=== PATIENT | male | born 1985 | race Caucasian/White ===

== ENCOUNTER 2017-01-29 18:53 | Emergency (ER) | payer SELFPAY ==
[~2017-01-29] VITALS: Ht 175.3 cm; Wt 88.6 kg
[2017-01-29] MEDS ORDERED: CEPHALEXIN500 M1 PO (20:15)
[2017-01-29 20:32] VITALS: BP 134/86
== END 2017-01-29 20:32 | disposition home or self-care (01) ==
LOC: ED 18:53
DX: S61.211A Laceration without foreign body of left index finger without damage to nail, initial encounter (principal); S60.022A Contusion of left index finger without damage to nail, initial encounter; W22.8XXA Striking against or struck by other objects, initial encounter; Y92.000 Kitchen of unspecified non-institutional (private) residence as the place of occurrence of the external cause; Z23 Encounter for immunization
CPT/HCPCS: 90715

== ENCOUNTER 2017-08-28 03:12 | Emergency (ER) | payer SELFPAY ==
[~2017-08-28] VITALS: Ht 177.8 cm; Wt 90.9 kg
[~2017-08-28 03:12] MED LIST changes: -NORCO 325 MG-51 TA1 PO
[2017-08-28 03:44] LABS: BASO # 0.1 (0.02-0.10); EOS # 0.4 (0.04-0.40); EOS % 3.2 % (0.0-4.0); HEMATOCRIT 43.9 % (42.0-52.0); HEMOGLOBIN 15.4 g/dL (13.5-18.0); LYMPH# 4.3 (1.50-4.00); MEAN CELL VOLUME 89 fl (78-100); MEAN CORPUSCULAR HEMOGLOBIN 31 pg (27-31); MEAN CORPUSCULAR HGB CONC 35 g/dL (33-37); MEAN PLATELET VOLUME 9.3 fl (7.4-10.4); MONO # 0.9 (0.20-0.80); NEU # 5.4 (1.40-6.50); PLATELET COUNT 241 K/mm3 (130-400); RED BLOOD COUNT 4.95 M/mm3 (4.20-5.60); RED CELL DISTRIBUTION WIDTH 13.1 % (11.5-14.5); WHITE BLOOD COUNT 11.1 K/mm3 (4.8-10.8)
[2017-08-28 03:58] LABS: ALBUMIN 4.2 g/dL (3.5-5.0); BUN/CREATININE RATIO 24.3 (6.0-26.0); CALCIUM 9.2 mg/dL (8.4-10.2); POTASSIUM 3.8 mmol/L (3.6-5.0); TOTAL BILIRUBIN 0.4 mg/dL (0.2-1.3); TOTAL PROTEIN 7.6 g/dL (6.3-8.2)
[2017-08-28] MEDS ORDERED: NORCO 325 MG-51 TA1 PO (05:46)
[2017-08-28 06:00] VITALS: BP 138/91
== END 2017-08-28 06:00 | disposition home or self-care (01) ==
LOC: ED 03:12
PROVIDERS: Nurse Practitioner Primary Care
DX: K80.20 Calculus of gallbladder without cholecystitis without obstruction (principal); F17.200 Nicotine dependence, unspecified, uncomplicated
CPT/HCPCS: J2405; J3010; J3490; J7030; Q9967

== ENCOUNTER → 2017-08-28 | Outpatient (CLI) | payer SELFPAY ==
[~2017-08-28] MED LIST: CEPHALEXIN500 M1 PO; NORCO 325 MG-51 TA1 PO
[2017-08-28 06:00] VITALS: BP 138/91
== END ==
LOC: RAD 08:19
DX: K81.9 Cholecystitis, unspecified (principal)

== ENCOUNTER → 2017-08-30 | Outpatient (CLI) | payer SELFPAY ==
[2017-08-28 06:00] VITALS: BP 138/91
[~2017-08-30] MED LIST changes: +NORCO 325 MG-51 TA1 PO
[2017-08-30 12:03] LABS: EOS # 0.3 (0.04-0.40); EOS % 3.5 % (0.0-4.0); HEMATOCRIT 44.3 % (42.0-52.0); HEMOGLOBIN 15.4 g/dL (13.5-18.0); LYMPH# 3.2 (1.50-4.00); MEAN CELL VOLUME 88 fl (78-100); MEAN CORPUSCULAR HEMOGLOBIN 31 pg (27-31); MEAN CORPUSCULAR HGB CONC 35 g/dL (33-37); MEAN PLATELET VOLUME 9.4 fl (7.4-10.4); MONO # 0.6 (0.20-0.80); NEU # 4.7 (1.40-6.50); PLATELET COUNT 258 K/mm3 (130-400); RED BLOOD COUNT 5.01 M/mm3 (4.20-5.60); RED CELL DISTRIBUTION WIDTH 12.9 % (11.5-14.5); WHITE BLOOD COUNT 8.9 K/mm3 (4.8-10.8)
[2017-08-30 12:14] LABS: ALBUMIN 4.4 g/dL (3.5-5.0); BUN/CREATININE RATIO 17.6 (6.0-26.0); CALCIUM 9.2 mg/dL (8.4-10.2); POTASSIUM 3.9 mmol/L (3.6-5.0); TOTAL BILIRUBIN 0.6 mg/dL (0.2-1.3); TOTAL PROTEIN 7.9 g/dL (6.3-8.2)
== END ==
LOC: LAB 11:28
PROVIDERS: Nurse Practitioner Family
DX: K80.10 Calculus of gallbladder with chronic cholecystitis without obstruction (principal)

== ENCOUNTER 2018-01-14 22:44 | Emergency (ER) | payer SELFPAY ==
[~2018-01-14] VITALS: Ht 177.8 cm; Wt 88.6 kg
[2018-01-14 22:55] VITALS: BP 135/104
[2018-01-14] MEDS ORDERED: NORCO 10-325 T1 EACH PO (23:15)
[2018-01-14] MEDS ORDERED: PENICILLIN-VK500 M1 PO (23:16)
== END 2018-01-14 23:25 | disposition home or self-care (01) ==
LOC: ED 22:44
DX: K08.89 Other specified disorders of teeth and supporting structures (principal); F17.200 Nicotine dependence, unspecified, uncomplicated
CPT/HCPCS: J1885

== ENCOUNTER 2021-06-01 11:52 | Emergency (ER) | payer SELFPAY ==
[~2021-06-01 11:52] MED LIST changes: +NORCO 10-325 T1 EACH PO; +PENICILLIN-VK500 M1 PO
[2021-06-01 12:15] VITALS: BP 156/76
[2021-06-01] MEDS ORDERED: CYCLOBENZAPRINE10 M1 PO (12:40)
[2021-06-01] MEDS ORDERED: NORCO 325 MG-51 TA1 PO (15:12)
== END 2021-06-01 15:18 | disposition home or self-care (01) ==
LOC: ED 11:52
DX: M62.830 Muscle spasm of back (principal)
CPT/HCPCS: J1885; J2360